=== PATIENT | male | born 1970 | race Caucasian/White ===

== ENCOUNTER 2016-10-01 20:48 | Emergency (ER) | payer OTHER ==
[~2016-10-01] VITALS: Ht 172.7 cm; Wt 84.0 kg
[2016-10-01 21:00] VITALS: Ht 172.7 cm; Wt 84.0 kg
[2016-10-01] MEDS ORDERED: KETOROLAC TROMETHAMINE 30 MG/ML VIAL IV STA (21:16)
[2016-10-01] MEDS ORDERED: CEFTRIAXONE SOD INJ 1 GM ADDVIAL IV STA (21:16)
[2016-10-01] MEDS ORDERED: SEPTRA DS HOME PACK 1 EA VIAL PO ONE (21:30)
[2016-10-01 21:49] LABS: BASO % 0.3 %; BASO ABS # 0.03 K/uL (0-0.2); COMPLETE YES; EOS % 1.4 %; HEMATOCRIT 43.5 % (42-52); IG% 0.2 %; LYMPH % 16.3 %; LYMPH ABS # 1.79 K/uL (1.2-3.4); MEAN CELL VOLUME 86.8 fL (80-100); MEAN CORPUSCULAR HEMOGLOBIN 29.1 pg (25-34); MEAN CORPUSCULAR HGB CONC 33.6 g/dl (32-36); MEAN PLATELET VOLUME 9.7 fL (7.4-10.4); MONO % 11.1 %; NEUT % 70.7 %; PLATELET COUNT 290 K/uL (130-400); RED BLOOD COUNT 5.01 M/uL (4.7-6.1); WHITE BLOOD COUNT 10.98 K/uL (4.8-10.8)
[2016-10-01 22:06] LABS: BUN/CREATININE RATIO 13.6 (10-20); POTASSIUM 3.7 mmol/L (3.5-5.1)
--- NOTE | 2016-10-01 22:13 | DIAGNOSTIC IMAGING REPORT ---
RIGHT EXTREMITY NONVASCULAR LIMITED CLINICAL HISTORY: right posterior knee infx, ? abscess Right. Right posterior knee swelling. COMPARISON STUDY: None. FINDINGS: There is subcutaneous edema seen within the right popliteal fossa. No loculated fluid collections at this time to suggest an abscess. IMPRESSION: Extensive subcutaneous edema within the right popliteal fossa. No loculated fluid collections at this time to suggest an abscess. Electronically signed by: Zachary Jimenez M.D. 10/01/2016 10:12 PM Dictated Date/Time: 10/01/2016 10:11 PM
[2016-10-01 22:17] LABS: CALCIUM 9.3 mg/dl (8.5-10.1)
[2016-10-01] MEDS ORDERED: SULF800T23 PO (22:33)
[2016-10-01] MEDS ORDERED: CEPH500C2 PO (22:33)
[2016-10-01 22:38] VITALS: BP 115/79; PULSE 91; TEMP 36.9; O2SAT 97
[2016-10-01] MEDS ORDERED: CEPHALEXIN 500MG HOME PACK 1 EA BTL PO ONE (22:45)
--- NOTE | 2016-10-01 22:55 | EMERGENCY ROOM VISIT NOTE ---
History First contact with patient: 21:09 Chief Complaint: SKIN PROBLEM Stated Complaint: BUMP ON LEFT LEG History of Present Illness The patient is a 46 year old male who presents to the Emergency Room with complaints of right lower leg infection for the past few days. Patient thinks something might of bit him. He's been picking at it. Patient states his tetanus is up-to-date. Patient denies chest pain, dyspnea, nausea, vomiting, diarrhea, fever, chills. He is tolerating by mouth fluids and food. No IV drug abuse. Review of Systems See HPI for pertinent positives & negatives. A total of 10 systems reviewed and were otherwise negative. Past Medical/Surgical History None Social History Smoking Status: Never Smoker Drug Use: none Marital Status: Housing Status: lives with family Occupation Status: employed Current/Historical Medications Scheduled Cephalexin Monohydrate (Keflex), 500 MG PO QID Sulfa/Trimethoprim (Bactrim Ds 800MG/160MG), 1 TAB PO BID Allergies Coded Allergies: No Known Allergies (Unverified , 09/27/15) Physical Exam Vital Signs Date Time Temp Pulse Resp B/P Pulse Ox O2 Delivery O2 Flow Rate FiO2 10/01/16 22:38 36.9 91 18 115/79 97 Room Air 10/01/16 21:00 36.8 104 20 119/79 96 Room Air Pain Rating (0-10): 2.0 Physical Exam VITALS: Vitals are noted on the nurse's note and reviewed by myself. Vital signs stable. GENERAL: Pleasant male, in no acute distress, nondiaphoretic, well-developed well-nourished. SKIN: Right lower leg is below posterior aspect of the knee with cellulitis 6 cm x 4 cm area no lymphangitis. No palpable abscess. The rest of the skin was without rashes, erythema, edema, or bruising. There is no tenting of the skin. Capillary reflex less than 2 seconds. HEAD: Normocephalic atraumatic. EARS: External auditory canals clear, tympanic membranes pearly stoddard without erythema or effusion bilaterally. EYES: Pupils equal round and reactive to light and accommodation. Conjunctivae without injection, sclerae without icterus. Extraocular movements intact. NOSE: Patent, turbinates without inflammation or discharge. MOUTH: Mucous membranes moist. Pharynx without erythema or exudate. Uvula midline. Airway patent. Tongue does not deviate. NECK: Supple without nuchal rigidity. No lymphadenopathy. No thyromegaly. Cervical spine is nontender. No JVD. HEART: Regular rate and rhythm without murmurs gallops or rubs. LUNGS: Clear to auscultation bilaterally without wheezes, rales or rhonchi. No dullness to percussion. No retractions or accessory muscle use. ABDOMEN: Positive bowel sounds x 4. Normal tympanic percussion. Soft, nontender, without masses or organomegaly. Driver sign negative. No guarding or rebound tenderness. MUSCULOSKELETAL: No muscle atrophy, or edema noted. NEURO: Patient was alert and oriented to person place and time. Normal sensation to light and sharp touch. No focal neurological deficits. Medical Decision & Procedures Laboratory Results 10/01/16 21:30 Red Blood Count 5.01, Mean Corpuscular Volume 86.8, Mean Corpuscular Hemoglobin 29.1, Mean Corpuscular Hemoglobin Concent 33.6, Mean Platelet Volume 9.7, Neutrophils (%) (Auto) 70.7, Lymphocytes (%) (Auto) 16.3, Monocytes (%) (Auto) 11.1, Eosinophils (%) (Auto) 1.4, Basophils (%) (Auto) 0.3, Neutrophils # (Auto ) 7.77, Lymphocytes # (Auto) 1.79, Monocytes # (Auto) 1.22, Eosinophils # (Auto ) 0.15, Basophils # (Auto) 0.03 10/01/16 21:30 Test 10/01/16 21:30 White Blood Count 10.98 K/uL (4.8-10.8) Red Blood Count 5.01 M/uL (4.7-6.1) Hemoglobin 14.6 g/dL (14.0-18.0) Hematocrit 43.5 % (42-52) Mean Corpuscular Volume 86.8 fL (80-100) Mean Corpuscular Hemoglobin 29.1 pg (25-34) Mean Corpuscular Hemoglobin Concent 33.6 g/dl (32-36) Platelet Count 290 K/uL (130-400) Mean Platelet Volume 9.7 fL (7.4-10.4) Neutrophils (%) (Auto) 70.7 % Lymphocytes (%) (Auto) 16.3 % Monocytes (%) (Auto) 11.1 % Eosinophils (%) (Auto) 1.4 % Basophils (%) (Auto) 0.3 % Neutrophils # (Auto) 7.77 K/uL (1.4-6.5) Lymphocytes # (Auto) 1.79 K/uL (1.2-3.4) Monocytes # (Auto) 1.22 K/uL (0.11-0.59) Eosinophils # (Auto) 0.15 K/uL (0-0.5) Basophils # (Auto) 0.03 K/uL (0-0.2) RDW Standard Deviation 43.0 fL (36.4-46.3) RDW Coefficient of Variation 13.5 % (11.5-14.5) Immature Granulocyte % (Auto) 0.2 % Immature Granulocyte # (Auto) 0.02 K/uL (0.00-0.02) Anion Gap 6.0 mmol/L (3-11) Est Creatinine Clear Calc Drug Dose 97.4 ml/min Estimated GFR () 104.1 Estimated GFR (Non- 89.9 BUN/Creatinine Ratio 13.6 (10-20) Calcium Level 9.3 mg/dl (8.5-10.1) Medications Administered Medications (Trade) Dose Ordered Sig/Ag Route Start Time Stop Time Status Last Admin Dose Admin Ketorolac Tromethamine (Toradol Inj) 30 mg NOW STAT IV 10/01/16 21:16 10/01/16 21:18 DC 10/01/16 21:49 30 MG Ceftriaxone Sodium (Rocephin Inj) 1 gm NOW STAT IV 10/01/16 21:16 10/01/16 21:18 DC 10/01/16 21:49 1 GM Trimethoprim/ Sulfamethoxazole (Sulfameth/ Trimeth Ds 800/ 160MG Home Pack) 1 homepack UD ONCE PO 10/01/16 21:30 10/01/16 21:31 DC 10/01/16 22:37 1 HOMEPACK Cephalexin Monohydrate (Keflex 500MG Home Pack) 1 homepack NOW ONCE PO 10/01/16 22:45 10/01/16 22:46 DC 10/01/16 22:45 1 HOMEPACK ED Course Prior records reviewed and summarized as above. Triage Nursing notes reviewed. Additional history obtained from family. The patient's history was concerning for swelling and redness of the skin. Differential diagnosis: Etiologies such as cellulitis, abscess, MRSA infection, DVT, necrotizing fasciitis, dermatitis, drug eruption, as well as others were entertained.. Physical examination: The physical examination was consistent with cellulitis ER treatment provided: Rocephin, Bactrim On reassessment the patient felt better. Diagnostics interpreted by me: The labs revealed mild leukocytosis. No worrisome electrolyte abnormality Imaging studies: RIGHT EXTREMITY NONVASCULAR LIMITED CLINICAL HISTORY: right posterior knee infx, ? abscess Right. Right posterior knee swelling. COMPARISON STUDY: None. FINDINGS: There is subcutaneous edema seen within the right popliteal fossa. No loculated fluid collections at this time to suggest an abscess. IMPRESSION: Extensive subcutaneous edema within the right popliteal fossa. No loculated fluid collections at this time to suggest an abscess. Electronically signed by: Zachary Jimenez M.D. This appears to be isolated cellulitis. Patient in no palpable abscess. No lymphangitis. He is afebrile. He is advised to take antibiotics as directed and to follow-up in 2 days for wound recheck with family care here in the ER sooner for spreading infection, fevers, vomiting, worsening signs or symptoms or as needed. Patient was neurovascularly and neurologically intact. He is well-appearing. By the evaluation outlined above emergent etiologies such as abscess, necrotizing fasciitis, DVT, as well as others were deemed relatively unlikely. The pt informed about the findings as listed above. All questions were answered and pleased with the treatment. Return instructions were outlined and the patient was discharged in stable condition. Outpatient prescription management: Keflex, Bactrim Referral: The patient was referred back to primary care physician for follow-up in 2 to 3 days for a recheck of the current condition. Case reviewed with my attending Medical Decision As above Impression Primary Impression: Cellulitis of right lower leg Departure Information Dispostion Home / Self-Care Condition GOOD Prescriptions Sulfa/Trimethoprim (Bactrim Ds 800MG/160MG) Tab 1 TAB PO BID, #20 TAB Prov: Olena Pettit PA-C 10/01/16 Cephalexin Monohydrate (KEFLEX) 500 Mg Cap 500 MG PO QID, #40 CAP Prov: Olena Pettit PA-C 10/01/16 Forms WORK / SCHOOL INSTRUCTIONS, HOME CARE DOCUMENTATION FORM, IMPORTANT VISIT INFORMATION Patient Instructions Cellulitis - [facility], My [facility] Additional Instructions Cephalexin(Keflex) 500mg: Take one pill four times daily for 10 days for your skin infection. All antibiotics can cause diarrhea. If this occurs and you feel worse or it does not resolve in 1-2 days follow up with your doctor or return to the Emergency Department as this could be signs of serious underlying problems. Any medication can cause an allergic reaction, stop the pills immediately and return to the ER for rash, hives, breathing difficulties, or swelling. Trimethoprim-Sulfamethoxazole(Bactrim DS): Take one pill twice daily for 10 days for your skin infection. All antibiotics can cause diarrhea. If this occurs and you feel worse or it does not resolve in 1-2 days follow up with your doctor or return to the Emergency Department as this could be signs of serious underlying problems. Any medication can cause an allergic reaction, stop the pills immediately and return to the ER for rash, hives, breathing difficulties, or swelling. Do not scratch or squeeze at the infection. Ibuprofen(Motrin, Advil) may be used for fever or pain. Use 600mg every six hours as needed. Take with food. Avoid using more than 2400mg in a 24 hour period. Do not use 2400mg per day for more than three consecutive days without physician direction. Prolonged inappropriate use can lead to stomach upset or ulcers. (AND/OR) Acetaminophen(Tylenol) may be used for fever or pain. Use 1000mg every six hours as needed. Avoid using more than 3000mg in a 24 hour period. Warm compresses to the affected area 4 times daily for 15-20 minutes. Rest and drink plenty of fluids. Continue current medications. Return to the ER for severe pain, persistent fevers, spreading redness, or any worsening of your condition. Follow up with your primary physician within 2-3 days for a recheck of the current condition.
== END 2016-10-01 22:50 | disposition home or self-care (01) ==
LOC: C.EDB 20:49 → C.EDC 22:50
DX: L08.9 Local infection of the skin and subcutaneous tissue, unspecified (principal); L03.115 Cellulitis of right lower limb